=== PATIENT | female | born 1980 | race Caucasian/White ===

== ENCOUNTER → 2018-05-10 | Day surgery (SDC) | payer OTHER ==
[~2018-05-10] MED LIST: NAPROXEN SODIU550 M1 PO
== END | disposition home or self-care (01) ==
LOC: ADM 05-06 15:15 → CIR.AMB 08:50
DX: N84.0 Polyp of corpus uteri (principal)

== ENCOUNTER 2023-04-14 11:26 | Inpatient (IN) | payer OTHER ==
[~2023-04-14] VITALS: Ht 162.6 cm; Wt 49.4 kg
[2023-04-22] MEDS ORDERED: BETHANECHOL CHL25 MG PO (16:04)
[2023-04-22] MEDS ORDERED: CIPROFLOXACIN500 MG PO (16:07)
[2023-04-22] MEDS ORDERED: IBUPROFEN800 MG PO (16:08)
[2023-04-22] MEDS ORDERED: LEVSIN/SL0.125 MG SL (16:09)
== END 2023-04-22 16:39 | disposition home or self-care (01) | DRG 743 ==
LOC: O/R 04-20 06:15 → OB/GYN 04-20 06:15 → SURH 04-20 07:15 → OB/GYN 04-20 15:22
PROVIDERS: Obstetrics & Gynecology; ADMIT Obstetrics & Gynecology Gynecology; ATTEND Obstetrics & Gynecology Gynecology
PROC: 0UT7FZZ Resection of Bilateral Fallopian Tubes, Via Natural or Artificial Opening With Percutaneous Endoscopic Assistance (ICD-10-PCS; 2023-04-20)
PROC: 0UT9FZZ Resection of Uterus, Via Natural or Artificial Opening With Percutaneous Endoscopic Assistance (ICD-10-PCS; principal; 2023-04-20 12:15)
DX: N80.03 Adenomyosis of the uterus (principal); N72 Inflammatory disease of cervix uteri; Z20.822 Contact with and (suspected) exposure to COVID-19